=== PATIENT | male | born 1985 | race Caucasian/White ===

== ENCOUNTER 2018-02-15 08:00 | Outpatient (RCR) | payer BC, SELFPAY ==
--- NOTE | 2018-02-04 08:00 | IE_ITS ---
Date: February 04, 2018 Referring: Brit Deng NP M.D. Diagnosis: Bilateral knee pain R greater than L P.T. Diagnosis: Chondromalacia patella bilaterally SUBJECTIVE: History of Present Illness: Shaquille complains of intermittent discomfort throughout the anterior aspect of the knees R greater than L. It certainly occurs following athletic activities such as running, playing basketball, etc. . . Generally last for 1/2 to 1 hour periods. Also noticeable with squatting while working with his students, etc. . . No complaints of locking, buckling or swelling. He also complains of intermittent R shoulder discomfort when throwing baseballs. A 32 year old male who developed onset of anterior bilateral knee pain at the age of 17. He played high school baseball, football, and basketball and would have these symptoms during athletic season. Settled down during off seasons. He had similar issues while playing intramural ball at [employer]. He now runs 4 miles per day and has similar issues. Pain Ratin/10 Pain Location: Throughout the anterior aspect of the knees. Current Level of Function: Independent with all ADL's, running up to 25-28 miles per week. Previous Treatment: None Social: Is a teacher at [employer]. Is , has a 3 year old and another child on the way. 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 This entails standing on his feet for prolonged periods, etc. . . Comorbidities: Heart murmur Falls in the last year: __X__ No ____Yes - How many? ____ - (if over 2, balance SM needs to be completed) Reported hospitalizations in the last year - __X__ No ____ Yes - Dates of admission/reason: Medications: Advil prn Quality of Life: ____ Excellent __X__ Good ____ Fair ____ Poor Standardized Measures: LEFS score: 14% OBJECTIVE: Posture: Has a mild genu varus with compensatory hyperpronation. Observation: (behavior, atrophy, skin color, etc.) Pleasant, no pain behavior noted. Gait: Ambulates without antalgia, again is a pronator. Able to walk on his heel and toes without weakness or pain. Palpation: Has some tenderness to palpation throughout the patella tendons, but particularly retropatellarly over the medial patella facet, non-tender throughout the joint line. (-) effusion, erythema or warmth. Girth measurements: He has some atrophic changes throughout the VMOs bilaterally R greater than L. Well developed medialis and lateralis. ROM: Bilateral hip motion is full and painless with movement, his L hip IR is at 40 degrees, ER at 40 degrees compared to 45-60 degrees on the R. Bilateral knee motion is full and painless with movement. Hyper extends at the L knee a+10 degrees compared to 0 degrees on the R, but without end range discomfort. Talocrural, subtalar and mid tarsal movements are full and painless with movement. He has a medium longitudinal arch in NWB position, it collapses in the WB position. Has good patella movement, (-) apprehension test. Strength: Has full motor control throughout. Strength 5/5. Neuro: Intact. Special Tests: (-) Rishi's or drawer sign, (-) laxity with valgus/varus stress. (-)Cortes's or Apley's grinding test. (+) patellofemoral compression with pain bilaterally. Has a forefoot varus of 6-7 degrees with subtalar neutral. Treatment: Consisted of an evaluation along with fabrication of accommodative type orthotics. IE: [id number] Therapeutic procedures ([id number]). Direct treatment time: 70 mins Total treatment time: 70 mins ASSESSMENT: Patient is a 32-year-old male, referred for PT services with the diagnosis of bilateral knee pain. Patient presents with clinical signs and symptoms consistent with bilateral chondromalacia patella along with a touch of patella tendinitis, as demonstrated by the following impairment level findings: Pain with patellofemoral compression along with some tenderness to palpation retropatellarly and over the patella tendon. He also is a pronator due to his excessive forefoot varus resulting in probable patella maltracking issues. Impairments are contributing to the following functional limitations: Discomfort following athletic activities. Patient is assessed as: __X__ Low 51041 ____ Moderate 72439 ____ High 52784 complexity, based on the following: History: (list): X See comorbidities and social history. Examination: (list): X See above for functional limitations and impairments. Presentation: X Stable . Evolving Unstable Decision-Making: X Low complexity Moderate complexity High complexity % Disability based on LEFS 14% __X__ Patient requires skilled PT intervention to remediate the above functional limitations to return to: _X__ Improve QOL Prognosis: ____ Excellent __X__ Good ____ Fair ____ Poor STG: __4__ weeks. 1: Address the biomechanical malalignment of the ankle/foot complex to improve patella tracking. 2: Increase dynamic stabilization of the patellofemoral mechanism, particularly through the VMO, in hopes this will minimize his pain following athletic activities. LTG: __8__ weeks. 1: Improve quality of life. PLAN: Session today consisted of an evaluation along with patient education and issuing him a written and illustrated HEP consisting of quad strengthening with emphasis on the VMO along with fabricating a pair of accommodative type orthotics with additional support throughout the longitudinal arch with a scaphoid pad. He will break these in over the next 4-5 days. I assess his foot wear and he has a [employer] Balance of poor quality, it is broken down with minimal support throughout the shank or the heel counter and excessive wearing along the lateral heel region. I recommend that he acquire a good running shoe with solid heel counter and shank, as well as good cushioning component. I will re-assess him in 10 days and also will take a look at his shoulder at that time. Thank you for this referral. Please do not hesitate to contact me with any questions or concerns regarding this patient's plan of care.
--- NOTE | 2018-02-15 08:00 | PTTR_ITS ---
DATE: 02/15/18 SUBJECTIVE: Shaquille states he has been compliant with his HEP, although he hasn't acquired a weight yet for his quad PRE. He has been breaking in the orthotic devices, his first 2 days took some adjustments, but he is wearing them social media marketing analyst now. Shaquille complains of occasional aching sensation throughout the lateral aspect of the proximal humerus during baseball season. Feels he has loss some velocity on the ball. Now that the season is over with, he is minimally symptomatic. He is able to sleep on his R side. OBJECTIVE: Seen 2 weeks ago for probable chondromalacia of the knee. Was fitted with accommodative type orthotics due to his pronation to assist the patella tracking along with quad and gluteal strengthening. I add some core strengthening exercises today. He also has had some issues with his R shoulder off and on over the past few years, especially during baseball season. 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 He had similar problems this past session. ARTICULAR: His cervical spine movements are full and painless with movement. R shoulder motion reveals good initiation of flexion/abduction without painful arc. His L thumb is at about the T6 level when reaching behind his back. His R thumb is 2 below and this causes discomfort throughout the anterior aspect of the proximal R humerus. His AA ROM in supine position shows close to full flexion and abduction, although he has a mild painful arc with abduction strictly in the frontal plane from 80 to 120 degrees. His ER is 95 degrees R, 90 degrees on the L. His IR is full on the L and he starts getting scapular substitution around 60 degrees on the R. He has (+) Hawkin's Shabbir, and Neer impingement maneuver on the R, (-) on the L. He tolerates good resistance to the rotator cuff, although he has some subtle weakness with the empty can position on the R. (-) pain with stress to the bicep mechanism. He is non-tender over the SC or AC joint, subacromially. Some mild tenderness over the R greater tuberosity compared to the L. Therapeutic procedures ([id number]). Direct treatment time: 30 mins Total treatment time: 30 mins A: Has a little irritation of the supraspinatus mechanism of the R cuff, particularly at its attachment and he has impingement syndrome, which may or may not be creating mechanical irritation to the supraspinatus. I am going to design a HEP and stretch the posterior capsule in hopes to mechanically unload the cuff, particularly the supraspinatus. Will also get him on a good strengthening program. P: Have Shaquille continue with his HEP for knee rehab. Added some core strengthening exercises. As he increases his running and he continues to have problems, he may be a candidate for a patella stabilizer. Discuss this with Jarad Santiago ATC, who covers soccer at the school. He is also issued a written and illustrated HEP consisting of stretching of the posterior capsule with a sleeper stretch and also detailed scapular stabilization program with emphasis on the rotator cuff with light weight. This should be done within limits of pain. If he has further problems, to contact me. Discharge him from formal PT. DLW/dl
== END 2018-03-01 23:59 | disposition home or self-care (01) ==
LOC: PT 08:00
PROVIDERS: PCP Nurse Practitioner Family; Referring Provider Nurse Practitioner Family; Visit Provider Nurse Practitioner Family
DX: M25.561 Pain in right knee (principal); M25.562 Pain in left knee; M22.41 Chondromalacia patellae, right knee; M22.42 Chondromalacia patellae, left knee
CPT/HCPCS: 97110; 97161

== ENCOUNTER 2018-02-21 01:08 | Emergency (ER) | payer BC, SELFPAY ==
[2018-02-21 01:11] VITALS: BP 150/81; PULSE 69; RESP 16; TEMP 36.4; O2SAT 100
--- NOTE | 2018-02-21 01:28 | ED.GENADUL_ITS ---
Disposition Clinical Impression: Cystitis Disposition: HOME Condition: Good Instructions: Pelvic Pain in Men (ED) Additional Instructions: Please take medication as directed. Please follow-up with the primary care provider tomorrow morning. If you notice any worsening of your symptoms, or any new symptoms such as vomiting, blood in your urine, diarrhea, fever, chills , shortness of breath, chest pain, numbness, weakness, or fainting , please return immediately to the emergency department for reevaluation. Please follow up with your primary care provider as soon as possible for reassessment and reevaluation. As always, it was a pleasure participating in your medical care today. Prescriptions: Acetaminophen [Tylophen] 500 mg PO Q6H #30 capsule Ibuprofen 600 mg PO Q6H #30 tablet Phenazopyridine [Pyridium] 100 mg PO TID #6 tab Referrals: Brit Deng [Primary Care Provider] - Medical Decision Making - Medical Decision Making This is a pleasant 32-year-old male who presents with 3 days of slightly worsening suprapubic pain. He has increased urinary frequency. No hematuria, no history of urolithiasis, STDs, or other problems. No prior urogenital surgeries. He has no fever or chills or systemic symptoms. Physical exam only demonstrates suprapubic tenderness with no testicular tenderness, normal cremasteric reflex, no other abdominal tenderness or flank tenderness. Patient' s vital signs are normal with no signs of tachycardia diaphoresis or extreme discomfort. We will give Tylenol and Toradol here for pain control, get a urinalysis to evaluate for UTI. Prostate was nontender and non-boggy and so I doubt prostatitis. The patient denies any intraurethral invaginations, or other behavior. We will evaluate for UTI. If there is evidence of blood the patient will require further laboratory workup for urolithiasis however I do feel this very unlikely with his current physical exam and clinical history. 2: 30 a.m. Patient's laboratory workup has returned. The patient demonstrates no significant white count or signs of leukocytosis. Renal function demonstrates a mildly elevated creatinine, however with no previous for comparison. GFR is within normal limits. Electrolytes appear normal. Remainder of his laboratory workup is benign. We are still pending CT scan results at this time. We will hydrate with a second liter for his mildly elevated creatinine. [address] scan results have returned normal. Per virtual radiology there is no acute findings. No evidence of appendicitis or other abnormalities. On reevaluation the patient is feeling better with the Toradol and Tylenol that he received. With no CT findings of an appendicitis, urolithiasis or other abnormalities as well as a relatively benign laboratory workup I feel he can be discharged home. Diagnosis cystitis. Will be given Tylenol and Motrin for home use, as well as a short supply of azathioprine. He has follow-up tomorrow morning with his primary care provider. We discussed red flags which returned the patient understands. He does not want antibiotics at this time preemptively for gonorrhea and Chlamydia cultures, and we will call him back if his cultures are positive. I have extensively reviewed the treatment plan and discharge instructions with the patient. I have addressed all patient concerns at this time. The patient was made aware of what symptoms to monitor for that would warrant a return to the emergency department. Discussed the plan with the patient, they demonstrate verbal understanding and agreement with our assessment and plan at this time. History of Present Illness - General Chief complaint: Abd Prob Stated complaint: IN PAIN Time Seen by Provider: 02/21/18 01:23 - History of Present Illness Initial comments: This is a pleasant 32-year-old male with no significant past medical history who presents today for suprapubic pain. Patient states that over the last 3 days he has had a mild achy pain in the area of his bladder. It appears to be worse at night when he is lying down. There are no relieving factors. He does admit to increase in urinary frequency, but denies any dysuria, hematuria, fever, chills, flank pain abdominal pain, vomiting or diarrhea. He states that he has been faithful to his , and is in a monogamous relationship, and has had no history of STDs. He denies any history of kidney stones, or family history of kidney stones. He denies any previous surgeries, IV illicit drug use, pertinent family history. He does admit to previous ventricular septal defect which improved on its own when he was in college in his 20s. Patient has no other complaints at this time. - Related Data Acetaminophen [Tylophen] 500 mg PO Q6H #30 capsule 02/21/18 Ibuprofen 600 mg PO Q6H #30 tablet 02/21/18 Multivitamin/Iron/Folic Acid [Centrum Adults Tablet] 1 each PO DAILY 02/21/18 Phenazopyridine [Pyridium] 100 mg PO TID #6 tab 02/21/18 Allergies Allergy/AdvReac Type Severity Reaction Status Date / Time No Known Allergies Allergy Unverified 02/21/18 01:15 Review of Systems Other: 10 point review of systems was performed, pertinent positives and negatives are noted in the history of present illness. General Exam - Other Other exam information: 1.Const: Well-nourished, Well-developed, appearing stated age 2.Eyes: PERRL, no conjunctival injection, and symmetrical lids. 3.ENT: Atraumatic external nose and ears. Moist MM. Neck: Symmetric, trachea midline, No thyromegaly. 4.CVS: +S1/S2, No murmurs or gallops. Peripheral pulses 2+ and equal in all extremities. Brisk capillary refill in all extremities. 5.RESP: Unlabored respiratory effort. Clear to auscultation bilaterally. No wheezes rales or rhonchi 6.GI: Soft, Nontender/Nondistended, No hepatosplenomegaly. No guarding or rebound. No pain at McBurney's point. Negative Barfield sign. Mild reproducible pain on palpation of the suprapubic region over the bladder. No flank tenderness. Genitourinary exam was performed with nurse at bedside, patient demonstrates normal cremasteric reflex bilaterally, nontender testicles , no testicular abnormalities or masses. No evidence of hernia on Valsalva. No urethral discharge, or penile shaft pain. He does have a circumcised penis. Rectal exam demonstrates normal rectum, prostate was nontender, non-boggy. No nodules noted. 7.MSK: Normocephalic/Atraumatic, Extremities w/o deformity or ttp No cyanosis or clubbing, Normal movement of all extremities 8.Skin: Warm, Dry. No rashes or lesions. 9.Neuro: client development manager II-XII grossly intact. Sensation grossly intact, no focal neurologic deficits. 10.Psych: (AAO) x3. Appropriate mood and affect Course Vital Signs - 24 hr 02/21/18 01:11 Temperature 36.4 C L Pulse 69 Respiratory 16 Rate Blood Pressure 150/81 Pulse Oximetry 100
[2018-02-21] MEDS: Acetaminophen 500 MG TAB 1000 MG PO (01:32)
[2018-02-21 01:33] LABS: Bilirubin Negative (Negative); Blood Negative (Negative); Clarity Clear; Glucose Negative (Negative); Ketones Negative (Negative); Leukocyte Esterase Negative (Negative); Nitrite Negative (Negative); Specific Gravity >= 1.030 (1.005-1.025); Urobilinogen 0.2 EU/dL (Up TO 0.2)
[2018-02-21] MEDS: Ketorolac 30 MG/ML VIAL IM (01:33)
[2018-02-21] MEDS: Normal Saline 1,000 ML 1000 ML IV ×2 (01:50→02:40)
[2018-02-21] MEDS: Omnipaque 350 MG/ML 100 ML BTL IJ (01:56)
[2018-02-21 01:59] LABS: Abs Immature Grans 0.03 k/cumm (0.0-0.09); Absolute Basophil Count 0.02 k/cumm (0.0-0.2); Absolute Eosinophil Count 0.19 k/cumm (0.0-0.7); Absolute Lymphocyte Count 2.12 k/cumm (1.2-3.4); Absolute Monocyte Count 0.86 k/cumm (0.11-0.7); Absolute Neutrophil Count 6.63 k/cumm (1.2-6.7); Basophils % 0.2; Eosinophils % 1.9; HCT 48.5 % (40.0-50.0); HGB 17.1 g/dL (13.5-17.5); Immature Grans % 0.3; Lymphocytes % 21.5; Mean Corp. HGB Concentration 35.3 g/dL (32.0-36.0); Mean Corpuscular Hemoglobin 30.8 pg (27.0-33.0); Mean Corpuscular Volume 87.4 fL (80-95); Mean Platelet Volume 9.2 fL (8.0-11.0); Monocytes % 8.7; Neutrophils % 67.4; Platelet Count 206 x1000/uL (130-400); RBC 5.55 m/cumm (4.50-6.00); RBC Distribution Width 11.9 % (11.8-14.1); White Blood Cell Count 9.85 k/cumm (4.4-10.8)
--- NOTE | 2018-02-21 02:10 | DI.RPTCT_ITS ---
SYMPTOM/DIAGNOSIS: SUPRAPUBIC PAIN, COMPLETELY BENIGN URINE, NAUSEA. R/O APPY ABDOMINAL AND PELVIC CT: 02/21 CT examination of the abdomen and pelvis was performed with a bolus infusion of 100 CC Omnipaque 350. Images obtained through the lung bases were unremarkable. Liver, spleen and pancreas appear normal. Note is made of cholelithiasis. No biliary dilatation seen. Adrenals and kidneys appear normal. Abdominal aorta is of normal diameter and no major vascular abnormality seen. No abdominal wall hernia seen. No abdominal or pelvic adenopathy. Appendix is normal. No evidence of diverticulitis or bowel obstruction. CONCLUSION: Negative abdominal and pelvic CT. No evidence of acute appendicitis.
[2018-02-21 02:13] LABS: ALT 35 U/L (12-78); AST 30 U/L (15-37); Alkaline Phosphatase 56 U/L (46-116); Anion Gap 6.1 mmol/L (3-11); BUN 23 mg/dL (7-18); CO2 30.9 mmol/L (21.0-32.0); CREATININE 1.35 mg/dL (0.70-1.30); Calcium 8.7 mg/dL (8.5-10.1); Chloride 101 mmol/L (98-107); Glucose 105 mg/dL (70-100); Lipase 76 U/L (73-393); Sodium 138 mmol/L (136-145)
--- NOTE | 2018-02-21 02:54 | DI.VRAD_ITS ---
EXAM: CT Abdomen and Pelvis With Intravenous Contrast CLINICAL HISTORY: 32 years old, male; Pain; Other: Suprapubic; Patient HX: Suprapubic pain, nausea TECHNIQUE: Axial computed tomography images of the abdomen and pelvis with intravenous contrast. All CT scans at this facility use at least one of these dose optimization techniques: automated exposure control; mA and/or kV adjustment per patient size (includes targeted exams where dose is matched to clinical indication); or iterative reconstruction. Coronal and sagittal reformatted images were created and reviewed. CONTRAST: 100 mL of Omnipaque 350 administered intravenously. COMPARISON: No relevant prior studies available. FINDINGS: Lung bases: Unremarkable. No mass. No consolidation. ABDOMEN: Liver: Unremarkable. No mass. Gallbladder and bile ducts: Unremarkable. No calcified stones. No ductal dilation. Pancreas: Unremarkable. No mass. No ductal dilation. Spleen: Unremarkable. No splenomegaly. Adrenals: Unremarkable. No mass. Kidneys and ureters: Unremarkable. No solid mass. No hydronephrosis. Stomach and bowel: Unremarkable. No obstruction. No mucosal thickening. PELVIS: Appendix: Normal appendix. Bladder: Unremarkable. No mass. Reproductive: Unremarkable as visualized. ABDOMEN and PELVIS: Intraperitoneal space: Unremarkable. No free air. No significant fluid collection. Bones/joints: No acute fracture. No dislocation. Soft tissues: Unremarkable. Vasculature: Unremarkable. No abdominal aortic aneurysm. Lymph nodes: Unremarkable. No enlarged lymph nodes. IMPRESSION: No acute findings. Dictated and Authenticated by: Kobe Rodriguez MD. Ordering:MAT BAKER MD
[2018-02-21 03:20] VITALS: BP 123/68; PULSE 53; RESP 18; TEMP 36.9; O2SAT 99
--- NOTE | 2018-02-21 07:27 | NUR.NOTE ---
Nursing Note: pT appears to be sleeping.
[2018-02-22 13:38] LABS: Chlamydia Result Negative; GC Result Negative; Specimen Description URINE
== END 2018-02-21 03:19 | disposition home or self-care (01) ==
PROVIDERS: Emergency Provider Student in an Organized Health Care Education/Training Program; PCP Nurse Practitioner Family
DX: N30.00 Acute cystitis without hematuria (principal)
CPT/HCPCS: 36415; 80053; 83690; 87491; 87591; 96361; 96372; 99285; 74177; 81003; 85025; 87086; 99284; J1885; J3490

== ENCOUNTER 2023-10-25 16:59 | Outpatient (REF) | payer BC, SELFPAY ==
[2023-10-25 18:57] LABS: Hemoglobin A1C 5.3 % (<5.7)
[2023-10-25 19:08] LABS: ALT 52 U/L (16-63); AST 54 U/L (15-37); Albumin 4.3 g/dL (3.4-5.0); Alkaline Phosphatase 64 U/L (46-116); Anion Gap 12.1 mmol/L (3-11); BUN 28 mg/dL (7-18); CO2 26.9 mmol/L (21.0-32.0); CREATININE 1.5 mg/dL (0.70-1.30); Calcium 9.2 mg/dL (8.5-10.1); Chloride 106 mmol/L (98-107); Estimated GFR 61.49 (mL/min/1.73m2); Glucose 105 mg/dL (74-106); Potassium 4.3 mmol/L (3.5-5.1); Sodium 145 mmol/L (136-145); TSH 0.86 uIU/Ml (0.36-3.74)
[2023-10-25 20:46] LABS: Calculated LDL 91 mg/dL (<100); Cholesterol 220 mg/dL (<200); HDL Cholesterol 53 mg/dL (40-60); Triglyceride 383 mg/dL (<150)
== END 2023-10-25 17:00 | disposition home or self-care (01) ==
LOC: NCHCN 16:59
PROVIDERS: PCP Nurse Practitioner Family; Visit Provider Nurse Practitioner Family
DX: Z00.00 Encounter for general adult medical examination without abnormal findings (principal); Z13.220 Encounter for screening for lipoid disorders; Z13.1 Encounter for screening for diabetes mellitus; Z13.29 Encounter for screening for other suspected endocrine disorder; Z13.228 Encounter for screening for other metabolic disorders
CPT/HCPCS: 80053; 80061; 83036; 84443